=== PATIENT | female | born 1995 | race Caucasian/White ===

== ENCOUNTER 2016-12-15 22:32 | Emergency (ER) | payer MEDICAID ==
[~2016-12-15] VITALS: Ht 157.5 cm; Wt 55.5 kg
[~2016-12-15 22:32] MED LIST: PREN-39 PO
[2016-12-15 22:44] VITALS: Ht 157.5 cm; Wt 55.5 kg
--- NOTE | 2016-12-15 23:23 | ERD ---
ER Documentation Chief Complaint Date/Time DATE: 12/15/16 TIME: 23:20 Chief Complaint right side abd pain started few hours ago denies n/v/d HPI 21-year-old female presents in emergency department for complaints of right sided abdominal pain started few hours prior to arrival. Patient started to have right upper quadrant pain that radiates to the right lower quadrant. Patient described the pain as sharp pain, 6/10 scale, not better or worse with anything. Patient denies any fever or chills. Patient denies any nausea vomiting diarrhea or constipation. Patient denies any fever or chills. ROS All systems reviewed and are negative except as per history of present illness. Medications Home Meds Reported Medications Vits W-Ca,Fe,Fa(<1MG) ( Vitamins) 1 Tab Tablet, 1 TAB PO 03/20/15 Allergies Allergies: Coded Allergies: No Known Drug Allergy (Verified Allergy, Mild, 04/17/15) PMhx/Soc Medical and Surgical Hx: pt denies Medical Hx, pt denies Surgical Hx History of Surgery: No Anesthesia Reaction: No Hx Neurological Disorder: No Hx Respiratory Disorders: No Hx Cardiac Disorders: No Hx Psychiatric Problems: No Hx Miscellaneous Medical Probl: No Hx Alcohol Use: No Hx Substance Use: No Hx Tobacco Use: No Smoking Status: Never smoker FmHx Family History: No coronary disease, No diabetes, No other Physical Exam Vitals Vital Signs Date Time Temp Pulse Resp B/P Pulse Ox O2 Delivery O2 Flow Rate FiO2 12/15/16 22:44 97.5 66 20 117/76 100 Physical Exam GENERAL: The patient is well developed and appropriate for usual state of health, in no apparent distress. CHEST: Clear to auscultation bilaterally. There are no rales, wheezes or rhonchi. HEART: Regular rate and rhythm. No murmurs, clicks, rubs or gallops. No S3 or S4. ABDOMEN: Soft, nontender and nondistended. Good bowel sounds. No rebound or guarding. No gross peritonitis. No gross organomegaly or masses. No Lynn sign or McBurney point tenderness. BACK: No midline or flank tenderness. EXTREMITIES: Equal pulses bilaterally. There is no peripheral clubbing, cyanosis or edema. No focal swelling or erythema. Full range of motion. Grossly neurovascularly intact. NEURO: Alert and oriented. Cranial nerves 2-12 intact. Motor strength in all 4 extremities with 5/5 strength. Sensation grossly intact. Normal speech and gait. SKIN: There is no apparent rash or petechia. The skin is warm and dry. HEMATOLOGIC AND LYMPHATIC: There is no evidence of excessive bruising or lymphedema. No gross cervical, axillary, or inguinal lymphadenopathy. Result Diagram: 12/16/16 0000 12/16/16 0000 Results 24 hrs Laboratory Tests Test 12/16/16 00:00 White Blood Count 7.710^3/ul Red Blood Count 3.9710^6/ul Hemoglobin 12.4g/dl Hematocrit 37.6% Mean Corpuscular Volume 94.7fl Mean Corpuscular Hemoglobin 31.2pg Mean Corpuscular Hemoglobin Concent 33.0g/dl Red Cell Distribution Width 12.5% Platelet Count 88289^3/UL Mean Platelet Volume 11.1fl Neutrophils % 46.3% Lymphocytes % 46.0% Monocytes % 5.4% Eosinophils % 1.6% Basophils % 0.4% Nucleated Red Blood Cells % 0.0/100WBC Neutrophils # 3.610^3/ul Lymphocytes # 3.610^3/ul Monocytes # 0.410^3/ul Eosinophils # 0.110^3/ul Basophils # 0.010^3/ul Nucleated Red Blood Cells # 0.010^3/ul Urine Color LT. YELLOW Urine Clarity CLEAR Urine pH 7.5 Urine Specific [employer] 1.015 Urine Ketones NEGATIVE Urine Nitrite NEGATIVE Urine Bilirubin NEGATIVE Urine Urobilinogen 0.2 E.U./dL Urine Leukocyte Esterase NEGATIVE Urine Hemoglobin NEGATIVE Urine Glucose NEGATIVE% Urine Total Protein NEGATIVE Sodium Level 140mmol/L Potassium Level 4.0mmol/L Chloride Level 103mmol/L Carbon Dioxide Level 26mmol/L Anion Gap 15 Blood Urea Nitrogen 16mg/dl Creatinine 0.61mg/dl Glucose Level 95mg/dl Calcium Level 9.7mg/dl Total Bilirubin 0.4mg/dl Direct Bilirubin 0.00mg/dl Indirect Bilirubin 0.4mg/dl Aspartate Amino Transf (AST/SGOT) 21IU/L Alanine Aminotransferase (ALT/SGPT) 28IU/L Alkaline Phosphatase 132IU/L Total Protein 7.2g/dl Albumin 5.0g/dl Globulin 2.20g/dl Albumin/Globulin Ratio 2.27 Lipase 122U/L PROCEDURE: CT abdomen and pelvis without intravenous contrast. CLINICAL INDICATION: Pain. TECHNIQUE: CT of the abdomen/pelvis was performed utilizing axial images with reconstructions in sagittal and coronal planes. The administered radiation dose is CTDI 6.2 mGy, DLP 332 mGy-cm. COMPARISON: 06/17/2014 FINDINGS: Visualized Chest: The visualized lung bases are clear. Abdomen: The liver, spleen, pancreas, gallbladder,and adrenal glands are unremarkable. The kidneys are without hydronephrosis. No definite urinary calculi are seen. There is no evidence of bowel obstruction. The appendix is normal. No intra- abdominal free air is seen. There is no evidence of intra-abdominal adenopathy or free fluid. Pelvis: An IUD is noted within the uterus. There is no evidence of pelvic adenopathy. The uterus and ovaries are without enlargement. The urinary bladder is unremarkable. There is no pelvic free fluid. Osseous structures: Unremarkable. IMPRESSION: No acute findings. RPTAT: HIKT .Flako Hicks MD, MD Date Time Electronically viewed and signed by .Flako Hicks MD, on 12/16/2016 00:55 .T/ CC: BIRD LOONEY [employer] PROCEDURE: US Abdomen (right upper quadrant). CLINICAL INDICATION: Pain. TECHNIQUE: Multiple real-time longitudinal and transverse images of the right upper quadrant of the abdomen were acquired utilizing a curved array transducer. Images were reviewed on a high-resolution PACS workstation. COMPARISON: CT abdomen 06/18/2014 FINDINGS: The liver is normal in size and echogencity. There is no focal intrahepatic mass.. The gallbladder is normal. There is no pericholecystic fluid or gallbladder wall thickening or gallstones. No intra or extrahepatic biliary dilatation is seen. The common bile duct measures 2.7 mm in maximal dimension. The visualized portions of the pancreas are unremarkable with obscuration of the tail of the pancreas. No free fluid is identified. Visualized abdominal aorta and IVC are unremarkable. The right kidney measures 10.7 cm in length. There is normal echogenicity within the right kidney. There is no perinephric fluid collection. No hydronephrosis, mass, or calculus is seen. IMPRESSION: 1. Negative examination. RPTAT: HMVK .Darryl Vaughan MD, MD Date Time Electronically viewed and signed by .Darryl Vaughan MD, MD on 12/16/2016 00:43 .K/ CC: BIRD LOONEY NP Procedures/MDM Medical Decision Making: Patient's abdominal pain is nonspecific at this time, can be musculoskeletal pain, can be viral. There is low suspicion for abdominal emergencies at this time. Patients abdominal exam is normal at this time. Patients radiology exam does not show any abdominal emergencies at this time. There is low suspicion for appendicitis, cholecystitis, abdominal aortic aneurysms or peritonitis at this time. There is low suspicion for sepsis. Patient appears well and is hemodynamically stable. Disposition: Home. Condition: Stable Prescription tramadol, Zofran Instructions: Patient is advised to take medications as prescribed. Patient is advised to rest, increase fluid intake and do brat diet for next 1-2 days and progress as tolerated. Patient is advised that if symptoms are worse, severe abdominal pain, uncontrolled vomiting, high fever, severe flank pain, worst signs and symptoms, to return to the emergency department immediately. Otherwise, patient can follow up with primary care doctor in 5-7 days. Departure Diagnosis: Primary Impression: Abdominal pain Abdominal location: right lower quadrant Qualified Code: R10.31 - Right lower quadrant abdominal pain Condition: Stable Patient Instructions: Abdominal Pain Additional Instructions: Patient is advised to take medications as prescribed. Patient is advised to rest , increase fluid intake and do brat diet for next 1-2 days and progress as tolerated. Patient is advised that if symptoms are worse, severe abdominal pain , uncontrolled vomiting, high fever, severe flank pain, worst signs and symptoms , to return to the emergency department immediately. Otherwise, patient can follow up with primary care doctor in 5-7 days. BIRD LOONEY NP Dec 15, 2016 23:23
[2016-12-16 00:21] LABS: ADD SCAN DIFF NO
[2016-12-16 00:22] LABS: BASOPHILS % 0.4 % (0.0-2.0); EOSINOPHILS # 0.1 10^3/ul (0.0-0.5); EOSINOPHILS % 1.6 % (0.0-7.0); HEMATOCRIT 37.6 % (37.0-47.0); HEMOGLOBIN 12.4 g/dl (12.0-16.0); LYMPHOCYTES # 3.6 10^3/ul (0.8-2.9); MEAN CORPUSCULAR HEMOGLOBIN 31.2 pg (29.0-33.0); MEAN CORPUSCULAR VOLUME 94.7 fl (82.0-101.0); MEAN PLATELET VOLUME 11.1 fl (7.4-10.4); MONOCYTE # 0.4 10^3/ul (0.3-0.9); MONOCYTES % 5.4 % (0.0-11.0); NEUTROPHIL # 3.6 10^3/ul (1.6-7.5); NEUTROPHILS % 46.3 % (39.0-77.0); PLATELET COUNT 231 10^3/UL (140-415); RED BLOOD COUNT 3.97 10^6/ul (4.20-5.40); RED CELL DISTRIBUTION WIDTH 12.5 % (11.5-14.5); WHITE BLOOD COUNT 7.7 10^3/ul (4.8-10.8)
[2016-12-16 00:29] LABS: ADD UMIC NO; UR BILIRUBIN (Dip) NEGATIVE (NEGATIVE); UR BLOOD (Dip) NEGATIVE (NEGATIVE); UR CLARITY CLEAR (CLEAR); UR COLOR LT. YELLOW (YELLOW); UR GLUCOSE (Dip) NEGATIVE (NEGATIVE); UR KETONES (Dip) NEGATIVE (NEGATIVE); UR LEUKOCYTE ESTERASE (Dip) NEGATIVE (NEGATIVE); UR NITRITE (Dip) NEGATIVE (NEGATIVE); UR TOTAL PROTEIN (Dip) NEGATIVE (NEGATIVE); UR UROBILINOGEN (Dip) 0.2 E.U./dL (0.1-1.0)
--- NOTE | 2016-12-16 00:43 | RADRPT ---
PROCEDURE: US Abdomen (right upper quadrant). CLINICAL INDICATION: Pain. TECHNIQUE: Multiple real-time longitudinal and transverse images of the right upper quadrant of th e abdomen were acquired utilizing a curved array transducer. Images were reviewed on a high-resoluti on PACS workstation. COMPARISON: CT abdomen 06/18/2014 FINDINGS: The liver is normal in size and echogencity. There is no focal intrahepatic mass.. The gallbladder is normal. There is no pericholecystic fluid or gallbladder wall thickening or gallstones. No intr a or extrahepatic biliary dilatation is seen. The common bile duct measures 2.7 mm in maximal dimen dai. The visualized portions of the pancreas are unremarkable with obscuration of the tail of the pancreas. No free fluid is identified. Visualized abdominal aorta and IVC are unremarkable. The right kidney measures 10.7 cm in length. There is normal echogenicity within the right kidney. There is no perinephric fluid collection. No hydronephrosis, mass, or calculus is seen. IMPRESSION: 1. Negative examination. RPTAT: HMVK .Darryl Vaughan MD, MD Date Time Electronically viewed and signed by .Darryl Vaughan MD, MD on 12/16/2016 00:43 .K/
--- NOTE | 2016-12-16 00:55 | RADRPT ---
PROCEDURE: CT abdomen and pelvis without intravenous contrast. CLINICAL INDICATION: Pain. TECHNIQUE: CT of the abdomen/pelvis was performed utilizing axial images with reconstructions in s agittal and coronal planes. The administered radiation dose is CTDI 6.2 mGy, DLP 332 mGy-cm. COMPARISON: 06/17/2014 FINDINGS: Visualized Chest: The visualized lung bases are clear. Abdomen: The liver, spleen, pancreas, gallbladder,and adrenal glands are unremarkable. The kidneys are without hydronephrosis. No definite urinary calculi are seen. There is no evidence of bowel obstruction. The appendix is normal. No intra-abdominal free air is seen. There is no evidence of intra-abdominal adenopathy or free fluid. Pelvis: An IUD is noted within the uterus. There is no evidence of pelvic adenopathy. The uterus and ovarie s are without enlargement. The urinary bladder is unremarkable. There is no pelvic free fluid. Osseous structures: Unremarkable. IMPRESSION: No acute findings. RPTAT: HIKT .Flako Hicks MD, MD Date Time Electronically viewed and signed by .Flako Hicks MD, on 12/16/2016 00:55 .T/
[2016-12-16 01:42] LABS: ALBUMIN/GLOBULIN RATIO 2.27; BILIRUBIN,INDIRECT 0.4 mg/dl (0-1.1); BILIRUBIN,TOTAL 0.4 mg/dl (0.2-1.3); CALCIUM 9.7 mg/dl (8.4-10.2); CREATININE 0.61 mg/dl (0.44-1.00); TOTAL PROTEIN 7.2 g/dl (6.1-8.1)
[2016-12-16] MEDS ORDERED: TRAM50TA2 PO (02:09)
[2016-12-16] MEDS ORDERED: ONDA4TAB14 PO (02:09)
[2016-12-16 02:16] VITALS: BP 102/57; PULSE 63; RESP 16
== END 2016-12-16 02:17 | disposition home or self-care (01) ==
LOC: FTE 22:32
DX: R10.31 Right lower quadrant pain (principal)
CPT/HCPCS: 36415; 74176; 76705; 80053; 81003; 83690; 85025

== ENCOUNTER 2018-04-01 18:17 | Emergency (ER) | END 2018-04-01 19:23 | disposition home or self-care (01) ==